=== PATIENT | male | born 1980 | race Two or more races ===

== ENCOUNTER 2020-02-01 18:20 | Emergency (ER) | payer MEDICAID ==
[~2020-02-01] VITALS: Ht 162.6 cm; Wt 88.0 kg
[2020-02-01] MEDS ORDERED: LIDOCAINE 1% 10 ML VIAL ONE (20:23)
[2020-02-01 21:00] VITALS: BP 132/81
[2020-02-01] MEDS ORDERED: LEVOFLOXACIN 500 MG TABLET PO ONE (21:15)
[2020-02-01] MEDS ORDERED: AZITHROMYCIN 250 MG TABLET PO ONE (21:15)
== END 2020-02-01 21:30 | disposition home or self-care (01) ==
LOC: EMS 18:24
DX: S01.511A Laceration without foreign body of lip, initial encounter (principal); I10 Essential (primary) hypertension; Z88.6 Allergy status to analgesic agent; Y04.2XXA Assault by strike against or bumped into by another person, initial encounter; Y93.89 Activity, other specified; Y92.89 Other specified places as the place of occurrence of the external cause; Y99.8 Other external cause status
CPT/HCPCS: 12011; 70450; 70486; 99285; J3490